=== PATIENT | female | born 1960 | race Caucasian/White ===

== ENCOUNTER 2017-05-01 23:46 | Emergency (ER) | payer MEDICAID ==
[2017-05-02 01:10] LABS: CALCIUM 8.4 mg/dL (8.5-10.1); CARBON DIOXIDE 30.1 mmol/L (21-32); CHLORIDE SERUM 106 mmol/L (98-107); CREATININE SERUM 0.7 mg/dL (0.6-1.0); GFR1 > 60 mL/min; GLUCOSE SERUM 106 mg/dL (74-106); POTASSIUM SERUM 3.3 mmol/L (3.5-5.1); SODIUM SERUM 142 mmol/L (136-145)
[2017-05-02 01:13] LABS: BASOPHIL % 0.8 % (0-2); PLATELET COUNT 369 x10^3mcL (130-400); RED CELL DISTRIBUTION WIDTH 13.4 % (11.5-14.5)
[2017-05-02 01:20] LABS: microscopic required? YES; urine erythrocyte 1+ (NEGATIVE)
[2017-05-02 03:18] VITALS: BP 101/65
== END 2017-05-02 03:18 | disposition home or self-care (01) ==
LOC: ED 23:46
PROVIDERS: Emergency Medicine Emergency Medical Services
DX: N39.0 Urinary tract infection, site not specified (principal); N23 Unspecified renal colic
CPT/HCPCS: J1885; J2270

== ENCOUNTER 2017-08-31 13:55 | Emergency (ER) | payer OTHER ==
[~2017-08-31] VITALS: Ht 157.5 cm; Wt 63.1 kg
[2017-08-31 14:03] VITALS: Ht 157.5 cm; Wt 63.1 kg
[2017-08-31 17:57] VITALS: BP 128/64
== END 2017-08-31 16:50 | disposition home or self-care (01) ==
LOC: ED 13:55
DX: G51.0 Bell's palsy (principal)
CPT/HCPCS: J7512

== ENCOUNTER 2018-01-27 16:27 | Emergency (ER) | payer OTHER ==
[~2018-01-27] VITALS: Ht 157.5 cm; Wt 63.7 kg
[2018-01-27 16:38] VITALS: Ht 157.5 cm; Wt 63.7 kg
[2018-01-27 19:22] VITALS: BP 125/75
== END 2018-01-27 19:22 | disposition home or self-care (01) ==
LOC: ED 16:27
DX: L23.9 Allergic contact dermatitis, unspecified cause (principal)
CPT/HCPCS: J1200; J7512

== ENCOUNTER 2018-12-02 16:58 | Emergency (ER) | payer OTHER ==
[~2018-12-02] VITALS: Ht 157.5 cm; Wt 68.2 kg
[2018-12-02 17:20] VITALS: Ht 157.5 cm; Wt 68.2 kg
[2018-12-02 20:44] LABS: UA SPECIFIC GRAVITY <=1.005 (1.005-1.035); microscopic required? YES; urine erythrocyte 1+ (NEGATIVE)
[2018-12-02 20:50] LABS: BASOPHIL % 0.6 % (0-2); PLATELET COUNT 321 x10^3mcL (130-400); RED CELL DISTRIBUTION WIDTH 13.2 % (11.5-14.5)
[2018-12-02 20:55] LABS: CALCIUM 8.7 mg/dL (8.5-10.1); CARBON DIOXIDE 29.6 mmol/L (21-32); CHLORIDE SERUM 97 mmol/L (98-107); CREATININE SERUM 0.8 mg/dL (0.6-1.0); GFR1 > 60 mL/min; GLUCOSE SERUM 96 mg/dL (74-106); POTASSIUM SERUM 3.5 mmol/L (3.5-5.1); SODIUM SERUM 133 mmol/L (136-145)
[2018-12-02 20:59] LABS: ALBUMIN 3.7 g/dL (3.4-5.0); ALKALINE PHOSPHATASE 87 U/L (46-116); ALT/SGPT 31 U/L (14-59); AMYLASE 64 U/L (25-115); AST/SGOT 30 U/L (15-37); BILIRUBIN TOTAL 0.34 mg/dL (0.20-1.00); LIPASE 143 IU/L (73-393); TOTAL PROTEIN, SERUM 7.6 g/dL (6.4-8.2)
[2018-12-02 22:26] VITALS: BP 112/62
== END 2018-12-02 22:26 | disposition home or self-care (01) ==
LOC: ED 16:58
PROVIDERS: Emergency Medicine
DX: N12 Tubulo-interstitial nephritis, not specified as acute or chronic (principal)
CPT/HCPCS: J0696; J1885; J2270; J2405; J7030